=== PATIENT | female | born 1950 | race Caucasian/White ===

== ENCOUNTER 2017-11-22 09:58 | Emergency (ER) | payer MEDICARE, OTHER ==
[2017-11-22 10:30] VITALS: BP 132/70
--- NOTE | 2017-11-22 11:16 | UC ---
Truncal Trauma HPI - HPI Summary HPI Summary: Pt c/o right lower lateral rib pain after leaning over metal railing and then hearing "pops, cracks and sudden onset of pain" four days ago. - History Of Current Complaint Chief Complaint: UCGeneralIllness Stated Complaint: RIGHT SIDE RIB PAIN Time Seen by Provider: 11/22/17 10:45 Hx Obtained From: Patient ?: No Onset/Duration: Sudden Onset, Lasting Days Onset Of Pain: Immediate Severity Initially: Moderate Severity Currently: Moderate Pain Intensity: 6 Aggravating Factor(s): Movement Alleviating factor(s): Rest Associated Signs And Symptoms: Positive: Negative - Allergies/Home Medications Allergies/Adverse Reactions: Allergies Allergy/AdvReac Type Severity Reaction Status Date / Time No Known Allergies Allergy Verified 11/22/17 10:30 Home Medications: Home Medications Ginseng 200 mg DAILY 11/22/17 [History Confirmed 11/22/17] Multivit-Min/Iron/Folic/Lutein [Centrum Silver Women Tablet] 1 each PO DAILY [History Confirmed 11/22/17] Rabeprazole Sodium [Aciphex] 20 mg DAILY 11/22/17 [History Confirmed 11/22/17] Risedronate (NF) [Actonel (NF)] 1 tab WEEKLY 11/22/17 [History Confirmed ] PMH/Surg Hx/FS Hx/Imm Hx Previously Healthy: Yes GI/ History: Gastroesophageal Reflux - Surgical History Surgical History: None - Family History Known Family History: Positive: Cardiac Disease - Social History Occupation: Retired Lives: With Family Alcohol Use: Rare Substance Use Type: None Smoking Status (MU): Never Smoked Tobacco Have You Smoked in the Last Year: No Review of Systems Constitutional: Negative Skin: Negative Eyes: Negative ENT: Negative Respiratory: Negative Cardiovascular: Negative Gastrointestinal: Negative Genitourinary: Negative Motor: Decreased ROM - right side rib pain Neurovascular: Negative Musculoskeletal: Arthralgia, Myalgia Neurological: Negative Psychological: Negative Is Patient Immunocompromised?: No All Other Systems Reviewed And Are Negative: Yes Physical Exam Triage Information Reviewed: Yes Appearance: Well-Appearing Vital Signs: Initial Vital Signs Temp 99.2 F 11/22/17 10:22 Pulse 66 11/22/17 10:22 Resp 16 11/22/17 10:22 BP 132/70 06/27/18 10:22 Pulse Ox 99 11/22/17 10:22 Vital Signs Reviewed: Yes Eye Exam: Normal ENT Exam: Normal Neck exam: Normal Respiratory Exam: Normal Cardiovascular Exam: Normal Musculoskeletal Exam: Other Musculoskeletal: Positive: Other: - pain with palpation right lateral ribs, 8-10 Neurological Exam: Normal Psychological Exam: Normal Skin Exam: Normal Diagnostics - Radiology No standard instances Radiology Interpretation Completed By: Radiologist - IMPRESSION: No radiographically apparent displaced rib fracture or pneumothorax. Truncal Trauma Course/Dx - Differential Dx/Diagnosis Differential Diagnosis/HQI/PQRI: Chest Wall Contusion, Rib Fracture Provider Diagnoses: right side Rib contusion Discharge - Sign-Out/Discharge Documenting (check all that apply): Discharge/Admit/Transfer - Discharge Plan Condition: Stable Disposition: HOME Patient Education Materials: Back Pain (ED), Ice Pack Application (ED), Rib Contusion (ED), Warm Compress or Soak (ED) Forms: *Work Release Referrals: Xu Bardales MD [Primary Care Provider] - If Needed - Billing Disposition and Condition Condition: STABLE Disposition: Home
--- NOTE | 2017-11-22 11:25 | RAD ---
INDICATION: Right rib pain after leaning over a decade 5 days earlier COMPARISON: None. TECHNIQUE: 5 views of the right ribs were obtained. FINDINGS: There is an external marker overlying the right lateral ribs. No fracture or significant focal osseous abnormality is seen. No pneumothorax is apparent. Limited views demonstrate grossly clear lungs. IMPRESSION: No radiographically apparent displaced rib fracture or pneumothorax. If the patient's symptoms persist, follow-up imaging is recommended.
== END 2017-11-22 11:50 | disposition home or self-care (01) ==
LOC: UCCORT 09:58
DX: S20.211A Contusion of right front wall of thorax, initial encounter (principal); X58.XXXA Exposure to other specified factors, initial encounter; Y93.9 Activity, unspecified; Y92.9 Unspecified place or not applicable; K21.9 Gastro-esophageal reflux disease without esophagitis
CPT/HCPCS: 99211; G0463